=== PATIENT | male | born 1940 | race Caucasian/White ===

== ENCOUNTER 2016-10-11 10:00 | Observation (INO) | payer BC ==
--- NOTE | ~2016-10-11 | HP ---
History And Physical [address] [place]. [address] NAME: CHANDLER COOK : 40 STATUS : ADM Carlie PAT#: [id number] AGE: 76 ADM/REG DATE : 10/11/16 MR#: [id number] REPORT SERV DATE: 10/11/16 DICTATED BY: JR. DALAL WILLIAM JOHN DATE: 10/11/16 REPORT STATUS : Draft TRANSCRIBED BY: ABEL DATE: 10/11/16 DATE OF ADMISSION: 10/11/2016 HISTORY OF PRESENT ILLNESS: 76-year-old white male, recently discharged from [facility] after stay from 09/07 through 09/21 for biliary pancreatitis who presented to the emergency room with complaint of altered mental status and visual field defect. During this stay from 09/07 through 09/21, the patient had ERCP with sphincterotomy on 09/08 and a laparoscopic cholecystectomy and umbilical hernia repair on 09/11. He developed postop ileus and had acute kidney injury. He eventually recovered and was discharged home. Since discharge, the patient has done okay. He awakened on the morning of admission with blurred vision. He says his right superior visual luis were defective on both sides. The patient's reported he was confused, however, she had gone home, the patient seemed appropriate to me. He also complained of a funny feeling in his left face. The facial feeling had resolved. He still had a visual field deficit when I saw him. The onset was approximately 12 hours prior. He states no other neurologic deficits. PAST MEDICAL HISTORY: Includes: 1. Coronary artery disease with history of bypass. Followed by Dr. Castaneda. 2. History of asthma. 3. History of hypertension. 4. Obstructive sleep apnea, on CPAP. 5. Dyslipidemia. 6. History of stroke with no residual deficit. 7. History of gastroesophageal reflux disease/hiatal hernia. 8. History of eczema. 9. History of gastroparesis. 10.Systolic heart failure with most recent ejection fraction of 40% to 45%. 11.Fatty liver infiltrate. 12.Colonic polyposis. 13.Gallstone pancreatitis. 14.History of multiple malignant melanoma surgeries. 15.Left total hip arthroplasty. 16.Left shoulder surgery. 17.Right total knee arthroplasty. 18.Abdominoplasty. 19.Laparoscopic cholecystectomy on 07/14. 20.ERCP on 07/10. 21.5.3 cm aortic root aneurysm. HOME MEDICATIONS: Include: 1. Vitamin C 1000 mg twice a day. 2. Aspirin 81 daily. 3. Coreg 12.5 b.i.d. 4. Plavix 75 daily. 5. Bentyl 10 mg three times a day. History And Physical [address] [place]. [address] NAME: CHANDLER COOK : 40 STATUS : ADM Carlie PAT#: [id number] AGE: 76 ADM/REG DATE : 10/11/16 MR#: [id number] REPORT SERV DATE: 10/11/16 DICTATED BY: JR. DALAL WILLIAM JOHN DATE: 10/11/16 REPORT STATUS : Draft TRANSCRIBED BY: ABEL DATE: 10/11/16 6. [place] 5/325 daily p.r.n. 7. Lisinopril 5 daily. 8. Robaxin 500 b.i.d. p.r.n. 9. Multivitamin tablet daily. 10.Fish oil 2000 mg twice a day. 11.Protonix 40 mg twice a day. 12.MiraLAX 1 packet twice a day. 13.Ranitidine 300 mg at bedtime. 14.Crestor 20 mg daily. 15.Flomax 0.4 mg daily. 16.Maxzide 37.5/25 one tablet orally daily. ALLERGIES: SULFA, CODEINE, AND DILAUDID. FAMILY HISTORY: Mother at age 83 of lung cancer. Father at age 68 of coronary artery disease. SOCIAL HISTORY: Lives in the [place] area. 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 Denies alcohol or tobacco. He is . REVIEW OF SYSTEMS: Negative and all 12 systems reviewed except did admit to headache and visual field deficit as above. PHYSICAL EXAMINATION: VITAL SIGNS: Temperature 98.3, blood pressure 135/53, heart rate 85, respiratory rate 12. GENERAL: The patient is alert and oriented, in no acute distress. HEENT: Pupils are equal, round, reactive to light. Extraocular motion intact. Sclerae anicteric. He had a homonymous right superior visual field deficit bilaterally. NEUROLOGIC EXAM: Cranial nerves 2 through 12 were intact other than the visual field deficit. Strength and sensation were full and equal throughout. CARDIOVASCULAR: S1, S2 without gallop, murmur, or rub. There is regular rate and rhythm. LUNGS: Clear to auscultation bilaterally with symmetrical chest rise. CARDIOVASCULAR: S1, S2 without gallop, murmur, or rub. There is regular rate and rhythm. ABDOMEN: Soft, nontender, bowel sounds present. No hepatosplenomegaly. EXTREMITIES: Show no clubbing, cyanosis, or edema. SKIN: Exam was unremarkable. LABORATORY DATA: White count 8.8, hemoglobin 13.9, platelets 139. Sodium 141, potassium 4.4, chloride 104, bicarb 29, BUN 24, creatinine 1.5, glucose of 98, total protein 6.4, albumin 3.5, calcium 9.2, total bilirubin 0.6, alkaline phosphatase 69, ALT of 18, AST of 15. Troponin I of less than 0.02. Urinalysis without pyuria. CT of the brain showed chronic ischemic change without acute findings. There was old frontal infarct. Chest x-ray showed no acute findings. CT of the abdomen and pelvis showed pneumobilia with evidence of recent ERCP/cholecystectomy. EKG shows sinus rhythm at rate of 57, first-degree AV block, without acute ST or T-wave changes. History And Physical [address] [address] NAME: CHANDLER COOK : 40 STATUS : ADM Carlie PAT#: [id number] AGE: 76 ADM/REG DATE : 10/11/16 MR#: [id number] REPORT SERV DATE: 10/11/16 DICTATED BY: JR. DALAL WILLIAM JOHN DATE: 10/11/16 REPORT STATUS : Draft TRANSCRIBED BY: ABEL DATE: 10/11/16 ASSESSMENT/PLAN: 76-year-old white male with, 1. Homonymous right superior visual field deficit in the bilateral eye concerning for posterior stroke and with resolved left facial numbness. We will give the patient aspirin, Plavix, Lipitor. Check an MRI of the brain, MRA of the neck and head, and ask Neurology to see the patient. We will also check an echocardiogram. 2. 5.3 cm aortic root aneurysm followed by Dr. Castaneda. 3. Coronary artery disease with history of bypass. Continue aspirin and Plavix. 4. History of gallstone and pancreatitis, status post ERCP with sphincterotomy, cholecystectomy. No complaint of abdominal pain now. 5. Hypertension. Continue Coreg and lisinopril. 6. Obstructive sleep apnea. Continue CPAP at home. 7. Compensated chronic systolic heart failure. Continue STU inhibitor and beta blockade. 8. Hiatal hernia with gastroesophageal reflux disease. Continue acid reduction therapy. 9. Observation status. 10.I will follow. 11.This patient is full code. WJF/MODL Harshad Dalal Jr, MD / [id number] CC: Harshad Dalal Jr, MD
--- NOTE | ~2016-10-11 | DS ---
Discharge Summary [address] [facility] [place]. [address] NAME: CHANDLER COOK : 40 STATUS : DIS Carlie PAT#: [id number] AGE: 76 ADM/REG DATE : 10/11/16 MR#: [id number] REPORT SERV DATE: 10/13/16 DICTATED BY: JR. DALAL WILLIAM JOHN DATE: 10/12/16 REPORT STATUS : Draft TRANSCRIBED BY: ABEL DATE: 10/12/16 ADMISSION DATE: 10/11/2016 DISCHARGE DATE: 10/12/2016 DISCHARGE DIAGNOSES: Include: 1. Left posterior cerebral artery watershed infarct. 2. Right superior homonymous quadrant hemianopsia. 3. 5.1 cm aortic root aneurysm. 4. Coronary artery disease with history of bypass graft. 5. Recent gallstone pancreatitis, status post ERCP and cholecystectomy. 6. Hypertension. 7. Obstructive sleep apnea. 8. Compensated chronic congestive heart failure. 9. Hiatal hernia with gastroesophageal reflux disease. OPERATIONS, PROCEDURES, AND TREATMENTS: Include: 1. CT of the brain done 10/11/2016, which showed no acute intracranial abnormality. There was mild to moderate diffuse cortical volume loss and findings compatible with moderate chronic deep white matter ischemic changes, most pronounced in the right parietal lobe. There is an old left frontal white matter infarct. 2. Chest x-ray done 10/11/2016 was normal with tortuous aorta. 3. CT of the abdomen and pelvis done 10/11/2016 showed no definite acute abnormality. There were chronic diverticulosis without diverticulitis. There is pneumobilia consistent with recent ERCP with sphincterotomy. There are stable large renal parapelvic cysts. 4. MRI of the brain done 10/11/2016 showed acute posterior cerebral artery and watershed infarction. 5. MRA of the head and neck showed significant intervenable lesions. 6. Echocardiogram done 10/12/2016 showed borderline left ventricular systolic function with ejection fraction of about 50% with septal bounce consistent with a conduction delay. There was normal right ventricular chamber size and systolic function. There was no significant valvular regurgitation or stenosis. There is lipomatosis hypertrophy, intra-atrial septum with interatrial septal aneurysm. There is an aortic root aneurysm measuring 5.1 cm in maximum dimension. DISCHARGE MEDICATIONS: Include: 1. Vitamin C 1000 mg orally twice a day. 2. Aspirin 81 mg orally daily. 3. Lipitor 80 mg orally daily. 4. Coreg 12.5 mg orally twice a day. 5. Plavix 75 mg orally daily. 6. Bentyl 10 mg orally three times a day. 7. Flomax 0.4 mg daily. 8. Multivitamin tablet orally daily. HOSPITAL COURSE: The patient was a 76-year-old male, recently discharged from [address] [address] NAME: CHANDLER COOK : 40 STATUS : DIS Carlie PAT#: [id number] AGE: 76 ADM/REG DATE : 10/11/16 MR#: [id number] REPORT SERV DATE: 10/13/16 DICTATED BY: JR. DALAL WILLIAM JOHN DATE: 10/12/16 REPORT STATUS : Draft TRANSCRIBED BY: ABEL DATE: 10/12/16 [facility] after stay from 09/07/2016 through 09/21/2016 for gallstone pancreatitis, status post ERCP with stone extraction and sphincterotomy as well as laparoscopic cholecystectomy, who presented to the emergency room with right superior visual field deficit. The visual field deficit was homonymous. The patient had no other neurologic deficits. Physical exam was remarkable only for visual field deficit by confrontation. Exam was otherwise unremarkable as was CT of the head and laboratory. The patient was admitted to the Clinical Decision Unit with suspicion of posterior circulation infarct, had an MRI which proved the above suspicion. Please see above for details. The patient was already on aspirin and Plavix. His dose of aspirin was increased to 325 from 81. He was also placed on high-intensity statin. The patient had no significant functional deficit, was felt stable for discharge home. Given that this was a watershed infarct, the goal is to have a little higher blood pressure. Unfortunately, has an aortic root aneurysm, therefore, would need to have intermediate blood pressure control. We will discharge patient home. We will follow up with the primary care physician and with Dr. Castaneda. For discharge exam and laboratory, please see daily progress note. DISCHARGE DIET: Regular. ACTIVITY: As tolerated. ANGELIQUE/ABEL Harshad Dalal Jr, MD / [id number] CC: Harshad Dalal Jr, MD Robert Drake, M.D.
--- NOTE | ~2016-10-11 | CN ---
Consultation Report [facility] [address] [place]. [address] NAME: CHANDLER COOK : 40 STATUS : ADM Carlie PAT#: [id number] AGE: 76 ADM/REG DATE : 10/11/16 MR#: [id number] REPORT SERV DATE: 10/11/16 DICTATED BY: DOMINGO NIELSON DATE: 10/11/16 REPORT STATUS : Draft TRANSCRIBED BY: MODLuis Eduardo DATE: 10/11/16 NEUROLOGY CONSULTATION DATE OF CONSULTATION: 10/11/2016 REASON FOR CONSULTATION: TIA versus stroke. HOSPITALIST: Harshad Dalal Jr, MD SEX CRIMES DETECTIVE: Roel Castaneda M.D. HISTORY OF PRESENT ILLNESS: The patient is a 76-year-old male, who woke up yesterday morning complaining of a peripheral vision deficit. He noticed he could not see as well in his peripheral vision field on the right. He also noticed that he had a headache, which was unusual for him. His headache was on the left side of his head, running from the occipital lobe up into the frontal lobe. On a scale of 0 to 10, he rated his headache a 5. Because of these changes, he decided to come to the emergency room for further evaluation and treatment. He was concerned that he may have had a stroke. The patient mentions that he has had a stroke in the past on the left side of his brain, which seemed to have minimal deficits. PAST MEDICAL HISTORY: Coronary artery disease, asthma, hypertension, obstructive sleep apnea (the patient wears CPAP), hyperlipidemia, stroke, hiatal hernia, GERD, chronic systolic heart failure with an EF of 40% to 45, nephrolithiasis, colon polyps, fatty liver disease, eczema, osteoarthritis, and BPH. PAST SURGICAL HISTORY: Coronary artery bypass grafting, multiple myeloma surgeries, left total hip arthroplasty, bilateral reverse total shoulder arthroplasty, varicose vein removal, bilateral total knee arthroplasty, UPPP, abdominoplasty, and left wrist repair. HOME MEDICATIONS: Consists of vitamin C 1000 mg twice a day, aspirin 81 mg daily, Coreg 12.5 mg b.i.d., Plavix 75 mg daily, Bentyl 10 mg t.i.d., [place] 5/325 mg one tablet p.r.n., Prinivil 5 mg daily, Robaxin 500 mg b.i.d. p.r.n. spasms, multivitamin daily, fish oil 2000 mg b.i.d., Protonix 40 mg b.i.d., MiraLAX 1 packet twice a day, Zantac 300 mg at bedtime, Crestor 20 mg daily, Flomax 0.4 mg daily, and Maxzide 37.5/25 mg daily. ALLERGIES: SULFA, CODEINE, AND DILANTIN. SOCIAL HISTORY: The patient is . He lives with his . He has three children. He is retired from a [employer] business. He now works at a [employer]. He does not smoke, drink alcohol, or use illicits. FAMILY HISTORY: The patient's mother at the age of 83 from lung cancer. His father at age of 68 from coronary artery disease. Consultation Report [address] [place]. [address] NAME: CHANDLER COOK : 40 STATUS : ADM Carlie PAT#: [id number] AGE: 76 ADM/REG DATE : 10/11/16 MR#: [id number] REPORT SERV DATE: 10/11/16 DICTATED BY: DOMINGO NIELSON DATE: 10/11/16 REPORT STATUS : Draft TRANSCRIBED BY: ABEL DATE: 10/11/16 REVIEW OF SYSTEMS: For pertinent positives, see HPI. PHYSICAL EXAMINATION: GENERAL: The patient is a 76-year-old male who stands 6 feet tall and weighs 274 pounds. He is afebrile. Heart rate 60, respiratory rate 18, O2 saturations on room air 94%, and blood pressure 146/65. NEUROLOGIC: The patient is alert. He is oriented x4, pleasant, communicates appropriately. Speech is clear. Language is fluent. Pupils are 3 mm PERRLA. EOMs intact. Funduscopic exam: Positive red reflex bilaterally. No nicking or hemorrhaging. No papillary edema. Venous pulsations are noted. Vision via confrontation reveals a visual deficit in the right outer quadrant bilaterally. Complained of mild numbness on the left side of the face compared to the right. Right facial droop (chronic). Upper extremity strength is 5/5 bilaterally. There is a slight action tremor. No asterixis. No pronator drift. No ataxia with osibwi-ut-dham. Upper extremity DTRs 2+ bilaterally. Did report mild numbness on the left when compared to the right. Lower extremity strength is 4/5 bilaterally. Lower DTRs 2+ bilaterally. No reported sensory deficits. NECK: No carotid bruits, JVD, or thyromegaly. CHEST: Lung sounds clear. Few crackles in the bases. CARDIAC: Regular rate and rhythm (sinus rhythm with first degree AV block). LABORATORY DATA: CBC is normal. BMP relatively normal, but creatinine 1.46. Chest x-ray shows cardiomegaly and a torturous aorta. Urinalysis negative for UTI. CT of the brain: Right occipital lobe hypodensity, cortical volume loss, and an old left frontal lobe stroke. NIH stroke scale is 3. ASSESSMENT/PLAN: Probable stroke with resultant right upper quadrant hemianopsia. At this point, the patient's aspirin has been increased to 325 mg daily. He is continued on his Plavix and his statin has been changed from Crestor over to Lipitor 80 mg at bedtime. The patient will undergo an MRI of the brain without gadolinium and an MRA of the head and neck with gadolinium. He will have an echocardiogram with bubble study. Additional lab work will be obtained. PT and OT have been consulted. The patient is being educated on risk factor reduction, and his systolic blood pressure should range from 140 to 180 mmHg for permissive hypertension. Thank you again for including us in consultation. We will follow with you. SABINO/ABEL Consultation Report [address] [place]. [address] NAME: CHANDLER COOK : 40 STATUS : ADM Carlie PAT#: [id number] AGE: 76 ADM/REG DATE : 10/11/16 MR#: [id number] REPORT SERV DATE: 10/11/16 DICTATED BY: DOMINGO NIELSON DATE: 10/11/16 REPORT STATUS : Draft TRANSCRIBED BY: ABEL DATE: 10/11/16 EVELIN Nj- / [id number] CC: Harshad Dalal Jr, MD Robert Drake, M.D. Alexander Stratienko, M.D.
[2016-10-11 09:27] LABS: BASOPHILS 0.2 %; BASOPHILS ABSOLUTE 0.02 10/3/uL (0.0-0.16); EOSINOPHILS 2.1 %; EOSINOPHILS ABSOLUTE 0.19 10/3/uL (0.0-0.53); ER CBC TAT 0 Hrs 03 Mins; HEMATOCRIT 40.4 % (40.0-51.0); HEMOGLOBIN 13.9 g/dL (13.6-17.8); IMMATURE GRANULOCYTES 0.2 %; IMMATURE GRANULOCYTES ABSOLUTE 0.02 10/3/uL (0.0-0.11); LYMPHOCYTES 21.2 %; LYMPHOCYTES ABSOLUTE 1.87 10/3/uL (0.67-4.30); MEAN CORPUS HGB CONC 34.4 g/dL (32.0-36.0); MEAN CORPUSCULAR HEMOGLOB 32.6 pg (26.0-34.0); MEAN CORPUSCULAR VOLUME 94.8 fL (80-100); MEAN PLATELET VOLUME 9.2 fL (9.2-13.0); MONOCYTES 9.2 %; MONOCYTES ABSOLUTE 0.81 10/3/uL (0.21-1.20); NEUTROPHILS 67.1 %; NEUTROPHILS ABSOLUTE 5.93 10/3/uL (2.02-8.40); PLATELET COUNT 139 10/3/uL (150-400); RBC DISTRIBUTION WIDTH 13.7 % (12.0-16.0); RED CELL COUNT 4.26 10/6/uL (4.7-6.1); WHITE BLOOD CELLS 8.8 10/3/uL (4.5-10.5)
[2016-10-11 09:28] LABS: MANUAL DIFF NO %
[2016-10-11 09:42] LABS: PARTIAL THROMBO TIME 23.7 SEC (22.5-37.2); PROTIME (NOT ORD) 13.1 SEC (12.0-14.5)
[2016-10-11 09:45] LABS: A/G RATIO 1.2 (0.7-1.9); ALBUMIN 3.5 G/DL (3.5-5.0); ALKALINE PHOSPHATASE 64 U/L (45-117); BUN (BLOOD UREA NITROGEN) 24 MG/DL (6-23); CALCIUM, SERUM 9.2 MG/DL (8.5-10.4); CHLORIDE, SERUM 104 MMOL/L (96-112); CO2 (CARBON DIOXIDE) 29 MMOL/L (24-34); CREATININE 1.46 MG/DL (0.70-1.30); GFR AFRICAN AMERICAN 53 ML/MIN (>=60); GFR NON AFRICAN AMERICAN 46 ML/MIN (>=60); GLOBULIN 2.9 G/DL (2.5-4.1); GLUCOSE, SERUM 98 MG/DL (60-99); POTASSIUM, SERUM 4.4 MMOL/L (3.5-5.3); SGOT(AST) 15 U/L (5-40); SGPT(ALT) 18 U/L (5-65); SODIUM, SERUM 141 MMOL/L (135-148); TOTAL BILIRUBIN 0.6 MG/DL (0-1.2); TOTAL PROTEIN 6.4 G/DL (6.0-8.5); TROPONIN I <0.02 NG/ML (<0.05)
[2016-10-11 09:57] LABS: ASCORBIC ACID (UR NOT ORDER) 40 (NEG); BILIRUBIN, URINE NEGATIVE (NEG); ER URINALYSIS TAT 0 Hrs 08 Mins; KETONE, URINE NEGATIVE (NEG); LEUKOCYTE ESTERASE(NOT OR NEG (NEG); NITRITE (URINE) NEG (NEG); WBC (NOT ORDERED) (RFLEX) < 1 (0-5)
[~2016-10-11 10:00] MED LIST: ADVAIR100 INH; ALEVE220 MG PO; AMOXIL500 MG PO; ASAB PO; ASABAYER PO; ATROPINE SUL1 % OPH; AUG500 PO; B121000P SC; BENTYL10 PO; CARDU2 PO; CENTRUM PO; COREG3 PO; COREG6 PO; COZ50 PO; CRESTOR20 MG PO; DESOWEN EX; DORYX100 MG PO; DORYX150 MG PO; FIORICET OR; FIORINAL PO; FISH-EPA1000 MG PO; FLEX PO; FLOMAX4 PO; HYDROCODONE PO; HYDROMET1 ML PO; MAX25 PO; METAMUCIL CAN7 OZ PO; METROGEL1 % TOP; MIRALAXPKT PO; MOMUD PO; MULTIPLE VIT PO; MULTIVITAMI1 PO; NEUR100 PO; NORCO1 TA1 PO; OMEGA 3550 MG PO; OMNICEF300 PO; PCET PO; PEP20 PO; PLAVIX PO; PRIN5 PO; PROTONIX PO; RANITIDINE300 MG PO; RX EYE DROP OPH; ULTRAM50 PO; VITAMIN B12; VITC500 PO; ZANTAC300 MG PO; [UNRECOGNIZED DRUG - OTHER] PO
[2016-10-11] MEDS ORDERED: CRESTOR20 MG PO (11:41)
[2016-10-11] MEDS ORDERED: METHOC500B PO (11:42)
[2016-10-11] MEDS ORDERED: MAX25 PO (11:42)
[2016-10-11] MEDS ORDERED: FLOMAX4 PO (11:42)
[2016-10-11] MEDS ORDERED: NORCO1 TA1 PO (11:42)
[2016-10-11] MEDS ORDERED: PLAVIX PO (11:43)
[2016-10-11] MEDS ORDERED: MIRALAX POWDER1 PKT PO (11:43)
[2016-10-11] MEDS ORDERED: COREG12 PO (11:43)
[2016-10-11] MEDS ORDERED: PROTONIX PO (11:43)
[2016-10-11] MEDS ORDERED: BENTYL10 PO (11:43)
[2016-10-11] MEDS ORDERED: PRIN5 PO (11:43)
[2016-10-11] MEDS ORDERED: ZANTAC300 MG PO (11:44)
[2016-10-12 05:00] LABS: BASOPHILS 0.3 %; BASOPHILS ABSOLUTE 0.02 10/3/uL (0.0-0.16); EOSINOPHILS 3.3 %; EOSINOPHILS ABSOLUTE 0.23 10/3/uL (0.0-0.53); HEMOGLOBIN 13.3 g/dL (13.6-17.8); IMMATURE GRANULOCYTES 0.6 %; IMMATURE GRANULOCYTES ABSOLUTE 0.04 10/3/uL (0.0-0.11); LYMPHOCYTES 25.4 %; LYMPHOCYTES ABSOLUTE 1.78 10/3/uL (0.67-4.30); MEAN CORPUS HGB CONC 34.1 g/dL (32.0-36.0); MEAN CORPUSCULAR HEMOGLOB 32.4 pg (26.0-34.0); MEAN CORPUSCULAR VOLUME 95.1 fL (80-100); MEAN PLATELET VOLUME 9.1 fL (9.2-13.0); MONOCYTES 12.3 %; MONOCYTES ABSOLUTE 0.86 10/3/uL (0.21-1.20); NEUTROPHILS 58.1 %; NEUTROPHILS ABSOLUTE 4.07 10/3/uL (2.02-8.40); PLATELET COUNT 140 10/3/uL (150-400); RBC DISTRIBUTION WIDTH 13.5 % (12.0-16.0)
[2016-10-12 05:04] LABS: MANUAL DIFF NO %
[2016-10-12 05:46] LABS: ALBUMIN 3.2 G/DL (3.5-5.0); CALCIUM, SERUM 8.7 MG/DL (8.5-10.4); CHLORIDE, SERUM 105 MMOL/L (96-112); CHOL/HDL RATIO(NOT ORDER) 2.4 (0-5); CHOLESTEROL 95 MG/DL (< 200); CREATININE 1.38 MG/DL (0.70-1.30); FREE T4 0.95 NG/DL (0.76-1.46); GFR AFRICAN AMERICAN 57 ML/MIN (>=60); GFR NON AFRICAN AMERICAN 49 ML/MIN (>=60); GLUCOSE, SERUM 92 MG/DL (60-99); HDL CHOLESTEROL 39 MG/DL (> 39); LDL CHOLESTEROL 31 MG/DL (< 130); NON-HDL CHOLESTEROL 56 MG/DL (< 160); POTASSIUM, SERUM 4.1 MMOL/L (3.5-5.3); SGOT(AST) 13 U/L (5-40); SGPT(ALT) 15 U/L (5-65); SODIUM, SERUM 142 MMOL/L (135-148); TOTAL BILIRUBIN 0.6 MG/DL (0-1.2); TOTAL PROTEIN 6.2 G/DL (6.0-8.5); TRIGLYCERIDE 128 MG/DL (< 150)
[2016-10-12 05:57] LABS: ALKALINE PHOSPHATASE 83 U/L (45-117); BUN (BLOOD UREA NITROGEN) 20 MG/DL (6-23); CO2 (CARBON DIOXIDE) 24 MMOL/L (24-34); DIRECT BILIRUBIN 0.2 MG/DL (0.0-0.4); FOLATE 31.4 NG/ML (>5.2); INDIRECT BILIRUBIN(NOT ORDER) 0.4 MG/DL (0.1-0.9)
[2016-10-12 06:31] LABS: C-REACTIVE PROTEIN 3.8 MG/L (<8.0)
[2016-10-12 08:33] LABS: SED RATE 9 MM/HR (0-15)
[2016-10-12] MEDS ORDERED: LIPITOR80 MG PO (15:46)
[2017-01-21] MEDS ORDERED: DYAZIDE1 CAP PO (13:22)
[2017-01-21] MEDS ORDERED: CRESTOR20 MG PO ×2 (13:23→17:33)
[2017-01-21] MEDS ORDERED: NORCO1 TA1 PO ×2 (13:25→17:44)
[2017-01-21] MEDS ORDERED: FLEX PO (13:26)
[2017-01-21] MEDS ORDERED: FIORINALC PO (13:27)
[2017-01-21] MEDS ORDERED: ZESTRIL5 MG PO (17:32)
[2017-01-21] MEDS ORDERED: MAX25 PO (17:32)
[2017-01-21] MEDS ORDERED: PLAVIX PO (17:32)
[2017-01-21] MEDS ORDERED: COREG12 PO (17:34)
[2017-01-21] MEDS ORDERED: PROTONIX PO (17:34)
[2017-01-21] MEDS ORDERED: ZANTAC300 MG PO (17:35)
[2017-01-21] MEDS ORDERED: FLOMAX4 PO (17:38)
[2017-01-21] MEDS ORDERED: BENTYL10 PO (17:39)
[2017-01-21] MEDS ORDERED: ASAB PO (17:41)
[2017-01-21] MEDS ORDERED: MIRALAX POWDER1 PKT PO (17:41)
[2017-01-21] MEDS ORDERED: FISH-EPA1000 MG PO (17:42)
[2017-01-21] MEDS ORDERED: MULTIVITAMI1 PO (17:43)
[2017-01-21] MEDS ORDERED: VITC500 PO (17:43)
[2017-01-21] MEDS ORDERED: FIORICET 50-301 EACH PO (17:45)
[2017-01-24] MEDS ORDERED: PRIN2.5 PO (12:50)
== END 2016-10-12 16:09 | disposition home or self-care (01) ==
LOC: ER 10:00 → CDU1 11:53
PROVIDERS: Nurse Practitioner
DX: I63.532 Cerebral infarction due to unspecified occlusion or stenosis of left posterior cerebral artery (principal); H53.461 Homonymous bilateral field defects, right side; Q25.43 Congenital aneurysm of aorta; I25.10 Atherosclerotic heart disease of native coronary artery without angina pectoris; I11.0 Hypertensive heart disease with heart failure; I50.22 Chronic systolic (congestive) heart failure; N40.0 Benign prostatic hyperplasia without lower urinary tract symptoms; G47.33 Obstructive sleep apnea (adult) (pediatric); K44.9 Diaphragmatic hernia without obstruction or gangrene; K21.9 Gastro-esophageal reflux disease without esophagitis; Z79.82 Long term (current) use of aspirin; Z79.02 Long term (current) use of antithrombotics/antiplatelets; Z79.899 Other long term (current) drug therapy; Z96.642 Presence of left artificial hip joint; Z90.49 Acquired absence of other specified parts of digestive tract; Z98.890 Other specified postprocedural states; Z88.2 Allergy status to sulfonamides; Z88.5 Allergy status to narcotic agent; Z88.8 Allergy status to other drugs, medicaments and biological substances; Z82.49 Family history of ischemic heart disease and other diseases of the circulatory system; Z80.1 Family history of malignant neoplasm of trachea, bronchus and lung; Z87.442 Personal history of urinary calculi; Z96.653 Presence of artificial knee joint, bilateral; Z98.41 Cataract extraction status, right eye; Z98.42 Cataract extraction status, left eye; Z95.1 Presence of aortocoronary bypass graft
CPT/HCPCS: 70450; 70544; 70548; 70551; 71010; 74176; 80048; 80053; 80061; 80076; 81001; 82140; 82607; 82746; 83036; 84439; 84443; 84484; 85025; 85610; 85652; 85730; 86140; 93005; 93306; 96372; 97161-GP; 99285; A9270-GY; A9577; G0378